=== PATIENT | female | born 1960 | race Caucasian/White ===

== ENCOUNTER 2021-12-06 10:58 | Emergency (ER) | payer BC ==
[~2021-12-06] VITALS: Ht 157.5 cm; Wt 111.1 kg
[2021-12-06] MEDS ORDERED: DIAZEPAM 5 MG TAB PO ONE (11:45)
[2021-12-06] MEDS ORDERED: KETOROLAC TROMETHAMINE 60 MG/2 ML VIAL IM ONE (11:45)
[2021-12-06] MEDS ORDERED: VALIUM5 MG PO (12:49)
== END 2021-12-06 12:59 | disposition home or self-care (01) ==
LOC: ER 11:09
DX: G44.209 Tension-type headache, unspecified, not intractable (principal); R01.1 Cardiac murmur, unspecified
CPT/HCPCS: 70450; 99283; J1885

== ENCOUNTER → 2022-08-18 | Day surgery (SDC) | payer BC ==
[~2022-08-18] MED LIST: FENTANYL CITRATE/PF 100MCG/2 ML INJ ONE; HYOSCYAMINE SULFATE 0.5 MG/ML INJ ONE; LACTATED RINGER'S 1,000 ML ONE; LIDOCAINE HCL 2% LOCAL INJ 5 ML SDV VIAL INJ ONE; LOSARTAN-HCTZ1 EACH PO; METOCLOPRAMIDE HCL 10 MG/2ML VIAL ONE; MIDAZOLAM HCL 2 MG/2 ML VIAL ONE; ONDANSETRON HCL INJ 2MG/ML 2ML 2 MG/ML VIAL ONE; POVIDONE IODINE 0.05% 0.05 % ML PO ONE; VALIUM5 MG PO
[2022-08-18 15:00] VITALS: BP 125/87; PULSE 72; RESP 18; O2SAT 97
== END | disposition home or self-care (01) ==
LOC: OR 11:35
PROVIDERS: ATTEND Internal Medicine Gastroenterology
DX: K52.9 Noninfective gastroenteritis and colitis, unspecified (principal); D12.0 Benign neoplasm of cecum; D12.2 Benign neoplasm of ascending colon; K57.30 Diverticulosis of large intestine without perforation or abscess without bleeding; K62.89 Other specified diseases of anus and rectum; K64.8 Other hemorrhoids; K21.9 Gastro-esophageal reflux disease without esophagitis; I10 Essential (primary) hypertension; E66.01 Morbid (severe) obesity due to excess calories; F17.200 Nicotine dependence, unspecified, uncomplicated; Z01.810 Encounter for preprocedural cardiovascular examination; Z79.899 Other long term (current) drug therapy; Z68.42 Body mass index [BMI] 45.0-49.9, adult
CPT/HCPCS: 45380; 45385; 83630; 83993; 87045; 87177; 87324; 87328; 87449; 93005; J1980; J2001; J2250; J2405; J2765; J3010; J7121; 45378